=== PATIENT | male | born 1965 | race Caucasian/White ===

== ENCOUNTER 2017-01-04 12:09 | Inpatient (IN) ==
--- NOTE | 2017-01-04 12:25 | Emergency Department Note ---
Disposition Clinical Impression: Pulmonary nodule, Atrial fibrillation with RVR Disposition: Admitted As Inpatient Condition: Good Referrals: NONE,PCP [Primary Care Provider] - General Adult HPI - General Stated complaint: PHILLIP, dizziness Time Seen by Provider: 01/04/17 12:22 Limitations: no limitations Nursing Notes Reviewed: Yes Vital Signs Reviewed: Yes - History of Present Illness HPI Narrative: 51-year-old male who presents with 3 days of palpitations, shortness of breath. He has a past medical history of alcoholism. He drinks a bottle of vodka daily. Most recent drink was this morning. He denies any bloody vomit. He denies having any medical history and takes no medications. He denies having a fever or cough. No abdominal pain. He does have chronic leg pain after work. 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 Pain Scale: 0 Consistency: constant Improves with: nothing Worsens with: nothing Associated symptoms: Reports: denies other symptoms Treatments Prior to Arrival: none - Related Data Home Medications Medication Instructions Recorded Confirmed No Known Home Drugs 01/04/17 01/04/17 Allergies Allergy/AdvReac Type Severity Reaction Status Date / Time No Known Allergies Allergy Verified 01/04/17 12:27 All systems ED: reviewed and negative except as stated. Constitutional: Denies: fever ENT ED: Denies: throat pain Cardiovascular: Reports: palpitations. Denies: chest pain Respiratory: Reports: dyspnea. Denies: cough Gastrointestinal: Denies: abdominal pain Musculoskeletal: Denies: back pain Integumentary: Denies: rash Neurological: Reports: headache Past Medical History - Past Medical History Medical history: Reports: no medical history Psychiatric history: Reports: no psych history - Social History Smoking Status: Current every day smoker Smokeless Tobacco Status: No Alcohol use: Reports: heavy Drug use: Reports: marijuana Physical Exam - General Limitations: no limitations General appearance: alert, in no apparent distress - Head Head exam: atraumatic - Eye Eye exam: Present: normal appearance - ENT ENT exam: normal exam, normal oropharynx - Neck Neck exam: Present: normal inspection - Chest Chest inspection: Present: normal inspection. Absent: symmetric chest wall rise - Respiratory Respiratory exam: Present: normal lung sounds bilaterally, respiratory distress - Cardiovascular Cardiovascular exam: Present: tachycardia, irregular rhythm - Abdominal Exam Abdominal exam: Present: soft, Non-Tender - Extremities Exam Extremities exam: Present: normal inspection. Absent: pedal edema - Neurological Exam Neurological exam: Present: alert - Skin Skin exam: Present: warm, dry Course Course Narrative: Started cardizem with bolus. Still escalating dose. His HR keeps dropping to the low 100's and then climbs back up. He feels much better in the times where his HR is lower. EKG does not show ST change. Labwork unremarkable. BP is stable. Will admit. Accepted by Dr King Vital Signs Temperature 98.7 F 01/04/17 12:17 Pulse Rate 175 01/04/17 12:17 Respiratory Rate 18 01/04/17 12:17 Blood Pressure 146/129 01/04/17 12:17 O2 Sat by Pulse Oximetry 95 01/04/17 12:17 Temperature 98.3 F 01/04/17 12:42 Pulse Rate 167 01/04/17 12:42 Respiratory Rate 18 01/04/17 12:42 Blood Pressure 132/97 01/04/17 12:42 O2 Sat by Pulse Oximetry 96 01/04/17 12:42 Oxygen Delivery Oxygen Delivery Room Air Medical Decision Making - Medical Records Medical records reviewed: Yes I reviewed the patient's medical records. - Lab Data Lab results reviewed: Yes I reviewed the patient's lab results. Result diagrams: 01/04/17 12:37 01/04/17 12:37 Lab Results 01/04/17 01/04/17 01/04/17 Range/Units 12:37 12:37 12:37 WBC 10.8 (4.3-11.1) K/mcL RBC 5.19 (4.19-5.50) M/mcL Hgb 18.1 H (12.9-16.9) g/dL Hct 50.8 H (37.5-50.1) % MCV 97.9 (83.0-100.0) fL MCH 34.9 H (28.0-33.3) pg MCHC 35.6 H (31.6-35.5) g/dL RDW 11.4 L (11.5-14.5) % Plt Count 267 (140-400) K/mcL MPV 9.5 (9.4-12.4) fL Immature Gran % 0.5 (0-4) % Seg Neutrophils % 71.2 % Lymphocytes % 21.0 % Monocytes % 6.2 % Eosinophils % 0.2 % Basophils % 0.9 % Neutrophils # 7.7 (1.6-8.9) K/mcL Lymphocytes # 2.3 (0.6-4.6) K/mcL Monocytes # 0.7 (0.0-1.3) K/mcL Eosinophils # 0.0 (0.0-0.6) K/mcL Basophils # 0.1 (0.0-0.2) K/mcL PT 11.9 (9.4-12.1) Seconds INR 1.1 APTT 30.2 (26.0-36.0) Seconds Sodium (136-145) mEq/L Potassium (3.5-4.5) mEq/L Chloride (98-109) mEq/L Carbon Dioxide (19-29) mEq/L BUN (8-26) mg/dL Creatinine (0.72-1.25) mg/dL Est GFR ( Amer) (> 60) Est GFR (Non-Af Amer) (> 60) BUN/Creatinine Ratio (6-26) Glucose (70-99) mg/dL Calculated Osmolality (280-300) Calcium (8.6-10.8) mg/dL Troponin I (0-0.03) ng/mL TSH 3.229 (0.350-4.840) mcIU/mL 01/04/17 01/04/17 Range/Units 12:37 12:37 WBC (4.3-11.1) K/mcL RBC (4.19-5.50) M/mcL Hgb (12.9-16.9) g/dL Hct (37.5-50.1) % MCV (83.0-100.0) fL MCH (28.0-33.3) pg MCHC (31.6-35.5) g/dL RDW (11.5-14.5) % Plt Count (140-400) K/mcL MPV (9.4-12.4) fL Immature Gran % (0-4) % Seg Neutrophils % % Lymphocytes % % Monocytes % % Eosinophils % % Basophils % % Neutrophils # (1.6-8.9) K/mcL Lymphocytes # (0.6-4.6) K/mcL Monocytes # (0.0-1.3) K/mcL Eosinophils # (0.0-0.6) K/mcL Basophils # (0.0-0.2) K/mcL PT (9.4-12.1) Seconds INR APTT (26.0-36.0) Seconds Sodium 138 (136-145) mEq/L Potassium 4.0 (3.5-4.5) mEq/L Chloride 97 L (98-109) mEq/L Carbon Dioxide 18 L (19-29) mEq/L BUN 16 (8-26) mg/dL Creatinine 0.88 (0.72-1.25) mg/dL Est GFR ( Amer) > 60 (> 60) Est GFR (Non-Af Amer) > 60 (> 60) BUN/Creatinine Ratio 18 (6-26) Glucose 134 H (70-99) mg/dL Calculated Osmolality 289 (280-300) Calcium 9.3 (8.6-10.8) mg/dL Troponin I 0.01 (0-0.03) ng/mL TSH (0.350-4.840) mcIU/mL - Radiology Data Radiology results reviewed: Yes I reviewed the patient's radiology results. - EKG Data EKG #1 EKG attestation: Yes I reviewed and interpreted this EKG. Rate: tachycardia Rhythm: A.Fib Prentice/QRS: normal Interpretation: other (Afib w/ RVR rate of 194)
[2017-01-04] MEDS ORDERED: 0.9 % Sodium Chloride 1,000 ML ONE (12:34)
--- NOTE | 2017-01-04 12:34 | Emergency Department Note ---
START Narrative - START START: I examined this patient and my medical decision-making was reviewed with the emergency medicine resident. I agree with the documented findings, disposition and treatment plan as described except to the extent set forth below. Patient seen with emergency medicine resident Dr. Adams Barber, Please see a copy of his note for details of the H&P, ED evaluation, management and disposition. I have independently evaluated the patient and confirmed appropriate portions of the history and physical exam. Briefly: A 51-year-old male with no prior history of A. fib presents with palpitations lightheadedness. EKG shows atrial fibrillation with rapid ventricular response in the 170s. Neurologically nonfocal. Patient had a Cardizem bolus of 20 mg pressure decreased but the heart rate did not. Will be titrated on a Cardizem drip to heart rate blood pressure and will be given 1 L normal saline bolus. Admission anticipated, labs chest x-ray and admission disposition pending
[2017-01-04] MEDS: 0.9 % Sodium Chloride 1,000 ML IVC ONE ×2 (12:36→13:23)
[2017-01-04 12:50] LABS: Basophils # 0.1 K/mcL (0.0-0.2); Basophils % 0.9 %; Eosinophils % 0.2 %; Hematocrit 50.8 % (37.5-50.1); Hemoglobin 18.1 g/dL (12.9-16.9); Immature Granulocytes % 0.5 % (0-4); Lymphocytes # 2.3 K/mcL (0.6-4.6); Mean Corpuscular HGB Conc 35.6 g/dL (31.6-35.5); Mean Corpuscular Hemoglobin 34.9 pg (28.0-33.3); Mean Corpuscular Volume 97.9 fL (83.0-100.0); Mean Platelet Volume 9.5 fL (9.4-12.4); Monocytes # 0.7 K/mcL (0.0-1.3); Monocytes % 6.2 %; Neutrophils # 7.7 K/mcL (1.6-8.9); Platelet Count 267 K/mcL (140-400); Red Blood Count 5.19 M/mcL (4.19-5.50); Red Cell Distribution Width 11.4 % (11.5-14.5); Segmented Neutrophils % 71.2 %
[2017-01-04 13:01] LABS: INR 1.1; Prothrombin Time 11.9 Seconds (9.4-12.1)
[2017-01-04 13:03] LABS: Activated Partial Thrombo Time 30.2 Seconds (26.0-36.0)
[2017-01-04 13:06] LABS: BUN/Creatinine Ratio 18 (6-26); Blood Urea Nitrogen 16 mg/dL (8-26); Calcium 9.3 mg/dL (8.6-10.8); Carbon Dioxide 18 mEq/L (19-29); Chloride 97 mEq/L (98-109); Glucose 134 mg/dL (70-99); Osmolality,Calculated 289 (280-300); Sodium 138 mEq/L (136-145); eGFR For African Americans > 60 (> 60); eGFR For Non-African Americans > 60 (> 60)
[2017-01-04] MEDS ORDERED: Ondansetron 4 MG/2 ML VIAL IVP ONE (14:17)
[2017-01-04] MEDS ORDERED: *HR* Enoxaparin 100 MG/ML SYRINGE SQ ONE (15:07)
[2017-01-04] MEDS ORDERED: diazePAM 10 MG/2 ML SYRINGE IVP ONE (15:25)
[2017-01-04] MEDS ORDERED: *HR* LORazepam 2 MG/ML VIAL IVP PRN (16:38)
--- NOTE | 2017-01-04 16:45 | Internal Med History&Physical ---
Date of Encounter: 01/04/17 Time of Encounter: 16:41 Assessment and Plan (1) Alcohol withdrawal Current visit: Yes Status: Acute We will start the patient on CIWA protocol with IV Ativan as needed. Patient is high-risk for withdrawal. He usually starts withdrawn within 8 hours after last drink. Patient last drink was 8 hours ago. No prior history of seizures Qualifiers: Qualified Code(s): F10.239 - Alcohol dependence with withdrawal, unspecified (2) Atrial fibrillation with RVR Current visit: Yes Status: Acute Patient is on Cardizem drip. He has no prior history of afib. Todd-Vasc score so far 0. Patient on Cardizem drip rate control. He is an alcoholic drinks 1 pint of vodka every day. Suspect that Anticoagulants in this patient may be risky especially if he falls. Patients received one dose of Lovenox 1 mg per KG in the emergency room.. Patient however denies prior history of falls. Check echocardiogram, thyroid profile, electrolytes and replace it accordingly. Appreciate cardiology recommendations. Internal Medicine - H&P: HPI Chief complaint: palpitations History of present illness: Mr. Ku is a 51 year old male was an alcoholic presents to the emergency room today where the main complain of palpitations. For the past 2 days patient has been experiencing palpitations which he describes as rapid and irregular. Today at work he started having neck pain and jaw pain and his colleagues sent him to the emergency room. He was found to be in atrial fibrillation with rapid ventricular response. He denies any prior diagnosis of that. No chest pain. Fever or chills. He denies any history of falls. He drinks alcohol on daily basis 1 pint of vodka every day. Last drink was 8 hours ago. He usually starts with the world 8 hours after last drink. He denies any prior history of seizures related to that. Past Med Surg Social Fam HX - Past Medical History Medical history: no medical history Psychiatric history: no psych history - Social History Smoking Status: Current every day smoker Smokeless Tobacco Status: No Alcohol use: heavy Drug use: marijuana Internal Medicine - H&P: Meds No Known Home Drugs 01/04/17 [History] 3 Allergy/AdvReac Type Severity Reaction Status Date / Time No Known Allergies Allergy Verified 01/04/17 12:27 All Systems PM: A 10-system review of systems was performed and is negative for pertinent findings except as documented above in the HPI. Review of systems: 10 point review of systems is negative except for HPI - Constitutional Vitals: Temp Pulse Resp BP Pulse Ox 98.9 F 162 18 100/78 94 01/04/17 16:26 01/04/17 16:26 01/04/17 16:26 01/04/17 16:26 01/04/17 16:26 Exam: Gen.: patient is alert oriented times 3 cardiac: variable intensity of S1 due to FIB chest: no active wheezing or bronchial breathing abdomen soft nontender nondistended normal bowel sounds lower extremity no swelling. Neuro: no new focal deficits. Extremeties: shakiness Internal Med - H&P Results - Labs CBC & Chem 7: 01/04/17 12:37 01/04/17 12:37
[2017-01-04] MEDS: Famotidine 20 MG/2 ML VIAL IVP SCH (16:51)
[2017-01-04] MEDS: *HR* LORazepam 2 MG/ML VIAL IVP PRN (17:49)
[2017-01-04] MEDS ORDERED: SODIUM CHLORIDE 0.9% IVPB ONE (17:55)
[2017-01-04] MEDS ORDERED: DIGOXIN IMMUNE FAB IVPB ONE (17:55)
[2017-01-04] MEDS ORDERED: *HR* Digoxin 0.5 MG/2 ML AMPUL IVP ONE (18:05)
[2017-01-04] MEDS ORDERED: FLUARIX QUAD 2017-18 36MOS UP/PF 0.5 ML SYRINGE IM ONE (18:35)
[2017-01-04] MEDS ORDERED: Ondansetron 4 MG/2 ML VIAL IVP PRN (23:35)
[2017-01-04] MEDS ORDERED: 0.9 % Sodium Chloride 500 ML ONE (23:40)
[2017-01-05 04:43] LABS: Basophils # 0.1 K/mcL (0.0-0.2); Basophils % 0.9 %; Eosinophils # 0.1 K/mcL (0.0-0.6); Eosinophils % 0.8 %; Hematocrit 41.8 % (37.5-50.1); Immature Granulocytes % 0.3 % (0-4); Lymphocytes # 1.7 K/mcL (0.6-4.6); Lymphocytes % 22.9 %; Mean Corpuscular HGB Conc 35.6 g/dL (31.6-35.5); Mean Corpuscular Hemoglobin 34.3 pg (28.0-33.3); Mean Corpuscular Volume 96.1 fL (83.0-100.0); Mean Platelet Volume 9.6 fL (9.4-12.4); Monocytes # 0.8 K/mcL (0.0-1.3); Neutrophils # 4.8 K/mcL (1.6-8.9); Platelet Count 168 K/mcL (140-400); Red Blood Count 4.35 M/mcL (4.19-5.50); Red Cell Distribution Width 11.4 % (11.5-14.5); Segmented Neutrophils % 64.1 %
[2017-01-05 04:45] LABS: Hemoglobin 14.9 g/dL (12.9-16.9)
[2017-01-05 04:58] LABS: BUN/Creatinine Ratio 16 (6-26); Blood Urea Nitrogen 13 mg/dL (8-26); Calcium 8.9 mg/dL (8.6-10.8); Carbon Dioxide 27 mEq/L (19-29); Chloride 98 mEq/L (98-109); Creatine Kinase 272 Units/L (30-200); Glucose 98 mg/dL (70-99); Magnesium 1.7 mg/dL (1.6-2.6); Osmolality,Calculated 284 (280-300); Potassium 3.9 mEq/L (3.5-4.5); Sodium 137 mEq/L (136-145); eGFR For African Americans > 60 (> 60); eGFR For Non-African Americans > 60 (> 60)
[2017-01-05 05:20] LABS: Thyroid Stimulating Hormone 5.793 mcIU/mL (0.350-4.840)
[2017-01-05] MEDS: Famotidine 20 MG/2 ML VIAL IVP SCH (06:28)
[2017-01-05] MEDS: *HR* LORazepam 2 MG/ML VIAL IVP PRN ×2 (06:36→08:46)
[2017-01-05] MEDS ORDERED: Aspirin 81 MG TAB.CHEW PO SCH (09:30)
--- NOTE | 2017-01-05 09:58 | Internal Med Progress Note ---
<Luis Hills - Last Filed: 01/05/17 17:41> Date of Encounter: 01/05/17 Time of Encounter: 09:55 - Assessment and plan (1) Atrial fibrillation with RVR Current Visit: Yes Status: Acute Assessment and plan: poor inventory of medical history; likely trigger related to chronic alcoholism. Patient has drink and 750 mils of vodka daily since he was about 23 and has had ongoing palpitations symptoms shikha to this for about 5 years that will come and go. Has had no prior work up for cardiac abnormalities. on 5 mg per hour diltiazem drip currently in sinus rhythm start on 81 mg ASA start normal saline at maintenance rate repeat EKG at 10:13 this AM demonstrates normal sinus rhythm at a rate of 87 bpm H/O cocaine use; UDS pending (2) Alcoholism Current Visit: Yes Status: Acute Assessment and plan: Currently on CIWA protocol; has had some vomiting and mild nausea without abdominal pain. No other withdrawal symptoms at this time. Continue Ativan PRN per CIWA protocol no prior work-up, will get LFTs and ultrasound of liver (3) Subclinical hypothyroidism Current Visit: Yes Status: Acute Assessment and plan: TSH mildly elevated; free T4 was normal may be further monitored on outpatient basis not a likely contributor to present course of paroxysmal atrial fibrillation (4) Pulmonary nodule Current Visit: Yes Status: Acute Assessment and plan: Will obtain CT of the chest to further characterize nodule further workup may be indicated depending on results; patient intends to follow up as an outpatient with Dr. Lane Palmer in the residency clinic -- will discuss further results with Dr. Palmer with consideration of ongoing monitoring/evaluation (5) DVT prophylaxis Current Visit: Yes Status: Acute Assessment and plan: Discontinue SCDs will start sub Q heparin - Time Spent With Patient 25 - 35 minutes - Subjective Interval history: Currently not having any chest pain, shortness of air, diaphoresis, headache; he has, however, having bouts of nausea and vomiting once this a.m. after drinking Pepper. Patient also states he has been having hiccups when he sits up. Otherwise, no tremor, no tactile abnormalities, no hallucinations, nor seizures. Overnight course stable. Vital signs stable with mild tachycardia on occasion spontaneously resolving. - Constitutional Vitals: Temp Pulse Resp BP Pulse Ox 98.8 F 99 16 134/83 94 01/05/17 07:10 01/05/17 09:37 01/05/17 09:37 01/05/17 09:37 01/05/17 09:37 General appearance: Present: A&O X 3, pleasant, no acute distress, answers questions appropriately - Head Head exam: Present: atraumatic, normocephalic - Eye Eye exam: Present: PERRL, conjuntiva pink, sclera anicteric. Absent: conjunctival injection, scleral icterus Pupils: Present: PERRL - ENT ENT exam: Present: mucous membranes moist, normal oropharynx Additional comments: No mucosal jaundice or pallor - Neck Neck exam general surgery: Present: supple, trachea midline - Respiratory Respiratory exam: Present: CTAB. Absent: accessory muscle use, prolonged expiratory phase, rales, respiratory distress, rhonchi, stridor, wheezes, tachypnea - Cardiovascular Cardiovascular exam: Present: RRR, +S1, +S2. Absent: diastolic murmur, gallop, rubs, +S3, +S4, systolic murmur - GI/Abdominal GI/Abdominal exam: Present: soft. Absent: tenderness - Extremities Exam Extremities exam: Present: warm, radial pulses palpable and symmetrical. Absent : calf tenderness, cyanotic, mottling, pedal edema - Neurological Exam Neurological exam: Present: oriented X3, no focal deficits. Absent: facial droop, speech deficit - Skin Skin exam: Present: dry, intact, normal color. Absent: cyanosis, diaphoretic, mottled, pallor Internal Medicine: Result - Labs CBC & Chem 7: 01/05/17 03:51 01/05/17 03:51 Labs: Short CBC 01/05/17 Range/Units 03:51 WBC 7.5 (4.3-11.1) K/mcL Hgb 14.9 D (12.9-16.9) g/dL Hct 41.8 (37.5-50.1) % Plt Count 168 (140-400) K/mcL Neutrophils # 4.8 (1.6-8.9) K/mcL BMP 01/05/17 03:51 Sodium 137 Potassium 3.9 Chloride 98 Carbon Dioxide 27 BUN 13 Creatinine 0.82 Glucose 98 Calcium 8.9 Cardiac Enzymes 01/05/17 Range/Units 03:51 Troponin I 0.02 (0-0.03) ng/mL Laboratory Last Values WBC 7.5 K/mcL (4.3-11.1) 01/05/17 03:51 RBC 4.35 M/mcL (4.19-5.50) 01/05/17 03:51 Hgb 14.9 g/dL (12.9-16.9) D 01/05/17 03:51 Hct 41.8 % (37.5-50.1) 01/05/17 03:51 MCV 96.1 fL (83.0-100.0) 01/05/17 03:51 MCH 34.3 pg (28.0-33.3) H 01/05/17 03:51 MCHC 35.6 g/dL (31.6-35.5) H 01/05/17 03:51 RDW 11.4 % (11.5-14.5) L 01/05/17 03:51 Plt Count 168 K/mcL (140-400) 01/05/17 03:51 MPV 9.6 fL (9.4-12.4) 01/05/17 03:51 Immature Gran % 0.3 % (0-4) 01/05/17 03:51 Seg Neutrophils % 64.1 % 01/05/17 03:51 Lymphocytes % 22.9 % 01/05/17 03:51 Monocytes % 11.0 % 01/05/17 03:51 Eosinophils % 0.8 % 01/05/17 03:51 Basophils % 0.9 % 01/05/17 03:51 Neutrophils # 4.8 K/mcL (1.6-8.9) 01/05/17 03:51 Lymphocytes # 1.7 K/mcL (0.6-4.6) 01/05/17 03:51 Monocytes # 0.8 K/mcL (0.0-1.3) 01/05/17 03:51 Eosinophils # 0.1 K/mcL (0.0-0.6) 01/05/17 03:51 Basophils # 0.1 K/mcL (0.0-0.2) 01/05/17 03:51 PT 11.9 Seconds (9.4-12.1) 01/04/17 12:37 INR 1.1 01/04/17 12:37 APTT 30.2 Seconds (26.0-36.0) 01/04/17 12:37 Sodium 137 mEq/L (136-145) 01/05/17 03:51 Potassium 3.9 mEq/L (3.5-4.5) 01/05/17 03:51 Chloride 98 mEq/L (98-109) 01/05/17 03:51 Carbon Dioxide 27 mEq/L (19-29) 01/05/17 03:51 BUN 13 mg/dL (8-26) 01/05/17 03:51 Creatinine 0.82 mg/dL (0.72-1.25) 01/05/17 03:51 Est GFR ( Amer) > 60 (> 60) 01/05/17 03:51 Est GFR (Non-Af Amer) > 60 (> 60) 01/05/17 03:51 BUN/Creatinine Ratio 16 (6-26) 01/05/17 03:51 Glucose 98 mg/dL (70-99) 01/05/17 03:51 Calculated Osmolality 284 (280-300) 01/05/17 03:51 Calcium 8.9 mg/dL (8.6-10.8) 01/05/17 03:51 Magnesium 1.7 mg/dL (1.6-2.6) 01/05/17 03:51 Creatine Kinase 272 Units/L (30-200) H 01/05/17 03:51 Troponin I 0.02 ng/mL (0-0.03) 01/05/17 03:51 TSH 5.793 mcIU/mL (0.350-4.840) H 01/05/17 03:51 Free T4 0.89 ng/dl (0.70-1.48) 01/05/17 03:51 - ABG Interpretation ABG results: PT/INR, D-dimer PT 11.9 Seconds (9.4-12.1) 01/04/17 12:37 - Prior EKG Data Prior EKG available for review: yes When compared to previous EKG: there are significant changes EKG comments: 01/05/17 10:43 rate 87, rhythm regular, axis 15, all intervals are normal, no T wave abnormalities, and no ST segment changes: NSR. - Impressions Impressions Echocardiogram 01/04/17 16:51 Impressions: LVEF 60-65%. Mild left ventricular diastolic dysfunction. Normal right ventricular structure and function. No significant valvular dysfunction. No pulmonary hypertension. Left Ventricular Wall Motion: Rest Echo Findings The mid inferior lateral wall was not visualized. All other wall segments showed normal motion. Findings: Study Quality * Technically adequate exam. ECG Findings * Normal sinus rhythm. Left Ventricle * Mild left ventricular diastolic dysfunction. * LVEF 60-65%. * Normal LV size and wall thickness. Right Ventricle * Normal right ventricular structure and function. Left Atrium * Normal left atrial size. Right Atrium * Normal right atrial size. Aortic Valve * No aortic regurgitation. * Trileaflet aortic valve. * Normal aortic valve structure. * No aortic stenosis. Mitral Valve * Normal mitral valve structure. * No mitral regurgitation. * No mitral stenosis. Tricuspid Valve * Tricuspid valve not well visualized. * Trace tricuspid regurgitation. Pulmonic Valve * Pulmonic valve is not well visualized. * No pulmonic stenosis. * No pulmonic regurgitation. Pulmonary Artery * Pulmonary artery not well visualized. Aorta * Normally sized aortic root. Pericardium * There is no pericardial effusion present. Interatrial Septum * No evidence of PFO by color Doppler. IVC * The IVC is not well evaluated. Consult Discharge Plan - Plan Instructions: Diltiazem (By mouth), Aspirin (By mouth) Referrals: NONE,PCP [Primary Care Provider] - Prescriptions: Aspirin Enteric Coated [Aspirin EC] 325 mg PO DAILY #30 tablet. Chlordiazepoxide [Librium] 25 mg PO QID #20 capsule Diltiazem CD (24hr) [Cardizem CD] 180 mg PO DAILY #30 cap.er.24h Nicotine Patch [Nicoderm] 21 mg TD DAILY #30 patch.td24 <Mallory Barron - Last Filed: 01/06/17 07:47> Date of Encounter: 01/06/17 - Constitutional Vitals: Temp Pulse Resp BP Pulse Ox 98.7 F 102 16 150/105 97 01/06/17 07:35 01/06/17 07:35 01/06/17 07:35 01/06/17 07:35 01/06/17 07:35 Internal Medicine: Result - Labs CBC & Chem 7: 01/05/17 03:51 01/05/17 03:51 Labs: BMP 01/05/17 03:51 Sodium 137 Potassium 3.9 Chloride 98 Carbon Dioxide 27 BUN 13 Creatinine 0.82 Glucose 98 Calcium 8.9 Liver Function 01/05/17 Range/Units 03:51 Total Bilirubin 2.3 H (0.2-1.2) mg/dL Direct Bilirubin 0.7 H (0.0-0.5) mg/dL AST 60 H (5-34) Units/L ALT 51 (0-55) Units/L Alkaline Phosphatase 46 (38-126) Units/L Albumin 3.8 (3.5-5.0) g/dL - ABG Interpretation ABG results: PT/INR, D-dimer PT 11.9 Seconds (9.4-12.1) 01/04/17 12:37 - Impressions Impressions Echocardiogram 01/04/17 16:51 Impressions: LVEF 60-65%. Mild left ventricular diastolic dysfunction. Normal right ventricular structure and function. No significant valvular dysfunction. No pulmonary hypertension. Left Ventricular Wall Motion: Rest Echo Findings The mid inferior lateral wall was not visualized. All other wall segments showed normal motion. Findings: Study Quality * Technically adequate exam. ECG Findings * Normal sinus rhythm. Left Ventricle * Mild left ventricular diastolic dysfunction. * LVEF 60-65%. * Normal LV size and wall thickness. Right Ventricle * Normal right ventricular structure and function. Left Atrium * Normal left atrial size. Right Atrium * Normal right atrial size. Aortic Valve * No aortic regurgitation. * Trileaflet aortic valve. * Normal aortic valve structure. * No aortic stenosis. Mitral Valve * Normal mitral valve structure. * No mitral regurgitation. * No mitral stenosis. Tricuspid Valve * Tricuspid valve not well visualized. * Trace tricuspid regurgitation. Pulmonic Valve * Pulmonic valve is not well visualized. * No pulmonic stenosis. * No pulmonic regurgitation. Pulmonary Artery * Pulmonary artery not well visualized. Aorta * Normally sized aortic root. Pericardium * There is no pericardial effusion present. Interatrial Septum * No evidence of PFO by color Doppler. IVC * The IVC is not well evaluated. Chest CT 01/05/17 11:30 IMPRESSION: 1. No acute thoracic abnormality. 2. The questionable 9 mm solid nodule of the left perihilar region seen on the prior radiograph likely relates to overlapping vessels. There are no findings concerning for pulmonary malignancy. 3. Severe hepatic steatosis. 4. Cholelithiasis. D/ / 01/05/2017 13:36:00 Sean Ibarra MD / cuate Interpreting Provider: Sean Ibarra MD Liver Ultrasound 01/05/17 16:30 IMPRESSION: Fatty infiltration of the liver. Cholelithiasis. D/ / Joyce Valencia Cha, MD / Joyce Valencia Cha, MD Interpreting Provider: Joyce Valencia Cha, MD - Attending Attestation I examined this patient and my medical decision-making was reviewed with the Resident Physician. I agree with the documented findings, disposition and treatment plan as described except to the extent set forth below. Mr. Ku is a 51 year old male w/ 750 mL/day vodka consumption, smokes 5 cigs/ day, 20 year hx of cocaine use last in 2012, daily marijuana use, and no previous cardiac history admitted here for new onset Afib and alcohol intoxication. Pt was placed onc ardizem gtt and he got converted to NSR. Now he denied any CP / SOB. He is alert, awake and O x3. A 1. New onset Afib - resolved cont Cardizem PO , ASA 325mg for anticoag 2. Alcohol intoxication / Alcohol dependence counseled to quit on CIWA + Librium scheduled
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
[2017-01-05 11:11] LABS: Amphetamine Screen,Urine Negative ng/mL (Cutoff=1000); Barbiturate Screen,Urine Negative ng/mL (Cutoff=200); Benzodiazepines Screen,Urine Negative ng/mL (Cutoff=200); Cannabinoid Screen,Urine Positive ng/mL (Cutoff = 50); Cocaine Screen,Urine Negative ng/mL (Cutoff= 300); Opiate Screen,Urine Negative ng/mL (Cutoff=300); Phencyclidine Screen,Urine Negative ng/mL (Cutoff=25)
[2017-01-05] MEDS: *HR* Heparin 5,000 UNIT/ML VIAL SQ SCH ×2 (11:12→17:29)
[2017-01-05] MEDS: 0.9 % Sodium Chloride 1,000 ML IVC SCH ×2 (11:15→22:30)
[2017-01-05] MEDS ORDERED: Folic Acid 1 MG TABLET PO SCH (15:00)
[2017-01-05] MEDS ORDERED: Multivit/Ca/Min/Fe/FA 1 TAB TABLET PO SCH (15:00)
[2017-01-05] MEDS ORDERED: Thiamine (B-1) 100 MG TABLET PO SCH (15:00)
[2017-01-05] MEDS: Thiamine (B-1) 100 MG TABLET PO SCH (17:28)
[2017-01-05] MEDS: Multivit/Ca/Min/Fe/FA 1 TAB TABLET PO SCH (17:28)
[2017-01-05] MEDS: Folic Acid 1 MG TABLET PO SCH (17:28)
--- NOTE | 2017-01-05 17:28 | Electrocardiograph Report ---
[place] [facility] Test Date: 2017-01-04 Pat Name: Oneil Ku Department: 104 Room: 2N14 Gender: M Pcat Instructor: WILLI : 1965 Requested By: Adams Barber Order Number: [id number] Reading MD: Lee Alexandra MD Measurements Intervals [place] Rate: 194 P: MT: 0 QRS: 48 QRSD: 76 T: 34 QT: 220 QTc: 318 Interpretive Statements ATRIAL FIBRILLATION WITH RAPID VENTRICULAR RESPONSE NONSPECIFIC ST & T-WAVE ABNORMALITY ABNORMAL RHYTHM ECG WARNING: DATA QUALITY MAY AFFECT INTERPRETATION INTERPRETATION BASED ON A DEFAULT AGE OF 40 YEARS Electronically Signed On 01-05-2017 17:26:54 EDT by Lee Alexandra MD
[2017-01-05 18:18] LABS: Alanine Aminotransferase 51 Units/L (0-55); Albumin 3.8 g/dL (3.5-5.0); Albumin/Globulin Ratio 1.2 (1.1-2.2); Alkaline Phosphatase 46 Units/L (38-126); Aspartate Amino Transferase 60 Units/L (5-34); Bilirubin,Direct 0.7 mg/dL (0.0-0.5); Bilirubin,Indirect 1.6 mg/dL (0.0-1.2); Bilirubin,Total 2.3 mg/dL (0.2-1.2); Globulin 3.3 g/dL (2.4-3.5); Total Protein 7.1 g/dL (6.0-8.3)
[2017-01-06] MEDS: 0.9 % Sodium Chloride 1,000 ML IVC SCH (06:28)
[2017-01-06] MEDS: *HR* Heparin 5,000 UNIT/ML VIAL SQ SCH (06:33)
[2017-01-06 07:38] VITALS: BP 150/105
[2017-01-06] MEDS: Multivit/Ca/Min/Fe/FA 1 TAB TABLET PO SCH (07:40)
[2017-01-06] MEDS: Folic Acid 1 MG TABLET PO SCH (07:40)
[2017-01-06] MEDS: Thiamine (B-1) 100 MG TABLET PO SCH (07:41)
[2017-01-06] MEDS: *HR* LORazepam 2 MG/ML VIAL IVP PRN (07:48)
--- NOTE | 2017-01-06 07:52 | Discharge Summary ---
Date of Encounter: 01/06/17 Time of Encounter: 07:48 - Discharge Diagnosis (1) Atrial fibrillation with RVR Priority: Primary Status: Acute (2) Alcohol withdrawal Priority: Secondary Status: Acute Qualifiers: Qualified Code(s): F10.239 - Alcohol dependence with withdrawal, unspecified (3) Pulmonary nodule Priority: Secondary Status: Ruled-out Comments: CT of chest - negative for any lung nodule - Discharge Medications Prescriptions: Aspirin Enteric Coated [Aspirin EC] 325 mg PO DAILY #30 tablet. Chlordiazepoxide [Librium] 25 mg PO QID #20 capsule Diltiazem CD (24hr) [Cardizem CD] 180 mg PO DAILY #30 cap.er.24h Nicotine Patch [Nicoderm] 21 mg TD DAILY #30 patch.td24 Home Medications: Aspirin Enteric Coated [Aspirin EC] 325 mg PO DAILY #30 tablet. 01/05/17 [Rx] Diltiazem CD (24hr) [Cardizem CD] 180 mg PO DAILY #30 cap.er.24h 01/05/17 [Rx] Chlordiazepoxide [Librium] 25 mg PO QID #20 capsule 01/06/17 [Rx] Nicotine Patch [Nicoderm] 21 mg TD DAILY #30 patch.td24 01/06/17 [Rx] Allergies/Adverse Reactions: 3 Allergy/AdvReac Type Severity Reaction Status Date / Time No Known Allergies Allergy Verified 01/04/17 12:27 Procedures/tests Complete & Pending: Procedures Performed prior 72 hours Category Date Time Status CT chest wo con [CT] Routine Cat Scan 01/05/17 11:30 Completed US liver [US] Routine Exams 01/05/17 16:30 Completed ECG 12 lead ECG [ECG] Routine Y 01/05/17 09:24 Ordered EV echocardiogram Routine Y 01/04/17 16:51 Completed Date of admission: 01/04/17 16:31 Primary care physician: PCP NONE Consults: 01/04/17 16:38 Consult to Installers Mechanical [CONS] Routine Reason for SW Consult: chemical dependency - Patient Status Disposition: Home, Self-Care Condition: Good Overall status at discharge: patient is back to baseline - Discharge Instructions Instructions: Diltiazem (By mouth), Aspirin (By mouth) Follow Up With: Lane Palmer DO [Resident] - Forms: ED Satisfaction Letter - Diet and Activity Activity: increase activity as tolerated Diet: low salt diet Hospital course: Mr. Ku is a 51 year old male w/ 750 mL/day vodka consumption, smokes 5 cigs/ day, 20 year hx of cocaine use last in 2012, daily marijuana use, and no previous cardiac history presented to our ER with palpitations . He happened to be in A fib, also was in alcohol intoxication. 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 He was started on Cardizem gtt, he did converted to NSR on same day. Pt has been tolerating PO Cardizem well and his HR stayed in sinus and in 70's. I did group therapy counselor the pt to quit drinking alcohol, he is willing to go to alcohol rehab walk in clinic. Provided him all the necessary information. Also placed him on CIWA protocol and started him on scheduled Librium. Today he is alert, awake and O x3. Vitals are stable. So will d/c him home in stable condition today. - Time Spent with Patient Total time spent providing and/or coordinating discharge services: - Constitutional Vitals: Temp Pulse Resp BP Pulse Ox 98.7 F 102 16 150/105 97 01/06/17 07:35 01/06/17 07:35 01/06/17 07:35 01/06/17 07:35 01/06/17 07:35 General appearance: Present: A&O X 3, pleasant, no acute distress, answers questions appropriately - Head Head exam: Present: atraumatic, normal inspection - Respiratory Respiratory exam: Present: decreased breath sounds. Absent: respiratory distress, rhonchi, wheezes - Cardiovascular Cardiovascular exam: Present: RRR, +S1, +S2 - GI/Abdominal GI/Abdominal exam: Present: normal bowel sounds, soft, no peritoneal signs. Absent: distended, tenderness - Extremities Exam Extremities exam: Absent: calf tenderness, pedal edema, tenderness - Back Exam Back exam: Absent: CVA tenderness (L), CVA tenderness (R) - Neurological Exam Neurological exam: Present: alert, oriented X3 - Psychiatric Psychiatric exam: Present: normal affect, normal mood
[2017-01-06] MEDS ORDERED: Aspirin 325 MG TABLET PO SCH (09:00)
[2017-01-06] MEDS ORDERED: Diltiazem CD (24hr) 180 MG CAPSULE PO SCH (09:00)
[2017-01-07 18:09] LABS: CK-BB (CK isoenzymes) 0 % (0-0); CK-MB (CK isoenzymes) 0 % (0-4); CK-MM (CK-isoenzymes) 100 % (96-100)
[2017-01-08 08:30] LABS: CK Total (Ck Isoenzymes) 272 U/L (20-200)
--- NOTE | 2017-01-08 09:20 | Electrocardiograph Report ---
[place] [id number] Test Date: 2017-01-05 Pat Name: Oneil Ku Department: 110 Room: 2N14 Gender: M Credit Risk Officer: ANASTASIIA : 1965 Requested By: Luis Hills Order Number: [id number] Reading MD: Nadeem Higgins DO Measurements Intervals [place] Rate: 87 P: 40 MA: 168 QRS: 15 QRSD: 96 T: 32 QT: 386 QTc: 431 Interpretive Statements SINUS RHYTHM Electronically Signed On 01-08-2017 9:18:31 EST by Nadeem Higgins DO
== END 2017-01-06 08:36 | disposition home or self-care (01) | DRG 309 ==
LOC: 2NENU 12:09 → EMEROO 12:09 → 2NNU 15:47 → SUATTDRO 16:31
PROVIDERS: ADMIT Hospitalist; ATTEND Family Medicine